=== PATIENT | male | born 1965 | race Caucasian/White ===

== ENCOUNTER 2024-11-25 23:16 | Emergency (ER) | payer SELFPAY ==
[2024-11-25 23:35] VITALS: BP 124/85
--- NOTE | 2024-11-26 02:42 | EDRN ---
Pt expresses suicidal ideations stating 'oh I forgot to tell you, I'm suicidal and I have depression.' pt denies plan, states he has never had this feeling before. crisis consult placed.
[2024-11-26 02:45] LABS: Hematocrit 36.1 % (39.0-52.0); Hemoglobin 12.1 g/dL (13.0-18.0); Mean Corp Hgb Conc. 33.5 g/dL (33.0-37.0); Mean Corpuscular Volume 78.5 fL (80.0-94.0); Nucleated Red Blood Cells % 0 % (-); Platelet Count 202 10^3/uL (130-400); Red Cell Dist. Width 13.6 % (11.5-14.5)
[2024-11-26 03:17] LABS: ALT (SGPT) 23 U/L (0-50); AST (SGOT) 32 U/L (17-59); Albumin 4.3 g/dl (3.5-5.0); Alkaline Phosphatase 47 U/L (38-126); Blood Urea Nitrogen 22 mg/dl (9-20); Calcium 9.1 mg/dl (8.4-10.2); Carbon Dioxide 25 mmol/L (22-30); Chloride 108 mmol/L (98-107); Estimated Creatinine Clearance 56 ml/min; Glucose 126 mg/dl (70-99); Potassium 3.8 mmol/L (3.5-5.1); Sodium 140 mmol/L (135-145); Total Protein 6.8 g/dl (6.3-8.2); eGFR > 60.00
[2024-11-26 03:29] LABS: Troponin I < 0.012 ng/ml
--- NOTE | 2024-11-26 05:26 | ED.GENMED ---
History of Present Illness
General
Chief Complaint: Chest Pain
Source: patient
Exam Limitations: none
Time Seen by Provider: 11/26/24 01:59
Nursing documentation reviewed up to this point in time: agreed with
History of Present Illness
History of Present Illness:
Note:
CHIEF COMPLAINT(S)
Chest pain.
HISTORY OF PRESENT ILLNESS
The patient is a 59-year-old male presenting with chest pain. The onset of the chest pain was approximately 30 minutes prior to arrival at the facility. The patient was transported to the facility by ambulance. He reports having stents placed about
three months ago but denies any prior cardiac issues before that procedure. The patient is not familiar with the details of his previous hospital stay. He denies smoking, alcohol, and drug use. The patient traveled from [place] to explore the
area.
PAST MEDICAL AND SURGICAL HISTORY
Three stents placed three months prior to this visit.
EXTERNAL RECORDS REVIEWED
The patient is unable to recall the name of the hospital where previous cardiac interventions were performed, complicating the retrieval of external records.
SOCIAL HISTORY
The patient denies the use of tobacco products, alcohol, and drugs.
PLAN
The patient is currently undergoing cardiac evaluation and management. Upon completion of the evaluation, arrangements will be made for discharge with a follow-up at [facility]. The possibility of using a transportation service such as [facility] for
discharge planning was discussed.
DIFFERENTIAL DIAGNOSIS
The Differential Diagnosis includes, in no particular order and is not limited to:
1. Myocardial infarction
2. Angina pectoris
3. Pulmonary embolism
4. Aortic dissection
5. Gastroesophageal reflux disease
6. Costochondritis
7. Panic attack
8. Pericarditis
9. Pneumonia
10. Esophageal spasm
Disposition:
SUMMARY OF ENCOUNTER
The patient is a 59-year-old male presenting to the emergency department with chest pain. The patient reported having had stents placed about three months ago. Upon evaluation, cardiac markers, including troponin, were negative. The patient,
identified as homeless, expressed his wish for discharge. He was provided resources for homelessness by crisis intervention services.
DISPOSITION
Discharge.
ASSESSMENT
The patients chest pain appears non-cardiac with a negative troponin suggesting no myocardial infarction. His condition improved during the visit.
FOLLOW-UP INSTRUCTIONS
The patient was advised to follow up with cardiology for ongoing cardiac evaluation and management.
PATIENT EDUCATION AND COUNSELING
The patient was counseled on the importance of following up with a [facility] for further evaluation and management of his cardiac condition. He was also provided information on resources available for homelessness.
MEDICAL DECISION MAKING
-Complexity of Data Reviewed: Chronic conditions affecting care including a history of stent placement. Differential Diagnosis considered included:
1. Myocardial infarction
2. Angina pectoris
3. Pulmonary embolism
4. Aortic dissection
5. Gastroesophageal reflux disease
6. Costochondritis
7. Panic attack
8. Pericarditis
9. Pneumonia
10. Esophageal spasm
-Data:
Category 1
Troponin was conducted and found negative.
Category 3
The patient was referred to crisis services to discuss resources related to his homelessness.
Care significantly affected by Social Determinants of Health: Patient is identified as homeless, and resources were provided to assist in addressing this issue.
DIAGNOSIS
Chest pain, unspecified (ICD-10 R07.9).
Phy Exam
Physical Exam
Physical Exam:
.
Scores
Heart Score for Chest Pain Patients
STEMI patient?: Not applicable
Course
Orders/Labs/Results
Orders:
Orders
11/25/24 23:20
ECG [Electrocardiogram (*1)] Urgent
Reason for Study: Chest Pain
EKG- Treatment ONCE
11/25/24 23:38
Complete Blood Count/With Diff Urgent
Comprehensive Metabolic Panel Urgent
Troponin I Urgent
11/26/24 02:40
Crisis Consult Urgent
Reason for Consult: suicidal ideations
Abnormal Lab Results
11/26/24
02:38
RBC 4.60 L 10^6/uL
(4.70-6.10)
Hgb 12.1 L g/dL
(13.0-18.0)
Hct 36.1 L %
(39.0-52.0)
MCV 78.5 L fL
(80.0-94.0)
MCH 26.3 L pg
(27.0-31.0)
Chloride 108 H mmol/L
(98-107)
BUN 22 H mg/dl
(9-20)
Glucose 126 H mg/dl
(70-99)
11/26/24 02:38
11/26/24 02:38
Vital Signs
Initial and Last Documented VS:
Initial Vital Signs
Temp Pulse Resp BP Pulse Ox
98.3 F 88 20 124/85 97
11/25/24 23:35 11/25/24 23:35 11/25/24 23:35 11/25/24 23:35 11/25/24 23:35
Last Documented Vital Signs
Temp Pulse Resp BP Pulse Ox
98.3 F 88 20 124/85 97
11/25/24 23:35 11/25/24 23:35 11/25/24 23:35 11/25/24 23:35 11/26/24 05:27
*Pulse Oximetry
SaO2: 97
Oxygen Mode of Delivery: Room air
Patient hypoxic: no
*Critical Care Note
Total Time (30-74mins, 75-104mins- exclusive of procedures): Not Applicable
ED Attending Note
-
Portions of this chart may have been created with voice recognition software.� Occasional wrong word or��sound alike� substitutions may have occurred due to the inherent limitations of voice recognition software.
Discharge Plan
Departure
Patient Disposition: Home (Routine Discharge)
Date of Disposition: 11/26/24
Time of Disposition: 06:07
Patient with high blood pressure during this ER visit?: No
Discharge Problem:
Chest pain
Instructions: Chest Pain [facility] Follow Up
Referrals:
[facility] [Provider Group]
Activity Restrictions/Additional Instructions:
Thank You for choosing [facility].
It was a pleasure meeting you and taking part in your care. We hope for your continued healing and wellness.
Please read discharge instructions in their entirety. However, they are for general education and may not describe your exact diagnosis at discharge. Information on your ER visit and medical conditions were discussed with you along with appropriate
follow up information...
If indicated, please take your medications as instructed and indicated on discharge paperwork.
Please schedule a follow up appointment as directed. Call to schedule an appointment
Please return to the emergency department with ANY change in, persisting, or worsening of symptoms. If any of your symptoms do not improve, or persist, or become more severe within 6-12 hours, please return to the emergency department for further
care.
Please return to the emergency department if you develop a headache, neck pain/stiffness, fever greater than 100.4F, chest pain, shortness of breath, persistent nausea, vomiting, slurred speech, difficulty walking, numbness/tingling, weakness, signs
of infection or any other symptoms that are worrisome to you.
If you have any questions or concerns please do not hesitate to call the Hospital at .
Interventions
Interventions:
*Risk Screen - Suicide Last Done: 11/26/24 03:32
*General Assessment Last Done: 11/26/24 03:32
*Neglect/Abuse Screening Last Done: 11/26/24 03:32
*ED- Fall Risk Assessment Last Done: 11/26/24 03:32
*ED COVID-19 Vaccine History Last Done: 11/26/24 03:32
*ED Influenza Vaccine History Last Done: 11/26/24 03:32
*Nursing Disposition Last Done: 11/26/24 06:48
ED- Cardiac Assessment Last Done: 11/26/24 04:47
Discharge Date and Time
Discharge Date/Time: 11/26/24 06:48
Print Language: FRENCH
--- NOTE | 2024-11-26 06:26 | EDRN ---
while reviewing discharge instructions, pt stated that he needed to get [facility] [place]. this RN informed pt that he was not in [facility]. pt became agitated saying 'thanks for nothing sweetheart, I know all about that.' directed pt
to security to request instructions to walk to [place] [facility]. pt left all resources from crisis and discharge paperwork in his hospital room. pt ambulatory out of ER to security.
== END 2024-11-26 06:48 | disposition home or self-care (01) ==
LOC: EMR 23:16
PROVIDERS: EMERGENCY PHYSICIAN Student in an Organized Health Care Education/Training Program
DX: R07.9 Chest pain, unspecified (principal); R45.851 Suicidal ideations; Z59.00 Homelessness unspecified
CPT/HCPCS: 99284; 80053; 84484; 85025; 93005